=== PATIENT | male | born 1980 | race Hispanic/Latino ===

== ENCOUNTER → 2019-10-07 | Outpatient (CLI) | payer OTHER ==
--- NOTE | 2019-10-07 15:26 | PFTRPT ---
Height: 70.00 Inches Weight: 175.00 Lbs BSA: 1.97 Diagnosis: R06.00 DATE OF PROCEDURE: 10/07/2019 ORDERED BY: XOCHILT Goncalves Spirometry: Pre and post bronchodilator study of excellent technical quality. Forced vital capacity normal. FEV1 in proportion. Obstructive index is, therefore, normal. Flow Volume Loop: Expiratory limb of the flow volume loop is normal. No significant bronchodilator response identified. Lung Volumes: Total lung capacity normal. Residual volume is in proportion. Diffusing Capacity: Diffusing capacity normal. Hemoglobin: Hemoglobin acceptable at 14.2. Airway Mechanics: Airway resistance and conductance are normal. IMPRESSION: Normal study. MTDD
== END ==
LOC: M CARPUL 14:56
PROVIDERS: ATTEND Physician Assistant
DX: R06.00 Dyspnea, unspecified (principal)

== ENCOUNTER → 2019-11-23 | Outpatient (CLI) | payer OTHER ==
[~2019-11-23] MED LIST: METHACHOLINE KIT (J7674) INH ONE; METHACHOLINE KIT (J7674) ONE
--- NOTE | 2019-12-09 14:15 | PFTRPT ---
Height: 70.00 Inches Weight: 180.00 Lbs BSA: 2.00 Diagnosis: R06.00 DATE OF STUDY: 11/23/2019 ORDERED BY: Lance Don M.D. QUALITY: Study of excellent technical quality. PROCEDURE: Under protocol, methacholine was administered. A dose of 2.5 mg or 13.975 CDUs, a 30% decline of the FEV1 was noted. PC of 0.4 is significant. Flow rates did return to baseline post-bronchodilator administration. IMPRESSION: Positive methacholine challenge study. MTDD
== END ==
LOC: M CARPUL 07:29
PROVIDERS: ATTEND Physician Assistant
DX: R06.00 Dyspnea, unspecified (principal)
CPT/HCPCS: 94070; J7674